=== PATIENT | male | born 1980 | race Caucasian/White ===

== ENCOUNTER 2024-03-18 08:34 | Emergency (ER) | payer OTHER, SELFPAY ==
[2024-03-18 08:43] VITALS: BP 146/96; PULSE 111; RESP 18; TEMP 37.1; O2SAT 99
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
[2024-03-18] MEDS: TETANUS,DIPHTHERIA,AC PERTUSSIS ADULT (0.5 ML) BOOSTRIX IM (09:04)
== END 2024-03-18 09:11 | disposition other institution (70) ==
PROVIDERS: Emergency Provider Nurse Practitioner
DX: S01.511A Laceration without foreign body of lip, initial encounter (principal); W22.8XXA Striking against or struck by other objects, initial encounter; Z23 Encounter for immunization
CPT/HCPCS: 90471; 90715; 99212; G0463